=== PATIENT | male | born 1990 | race Caucasian/White ===

== ENCOUNTER 2018-03-15 00:34 | Emergency (ER) | payer MEDICAID ==
--- NOTE | 2018-03-15 00:56 | EDPHY ---
H & P Stated Complaint: abd pain Time Seen by Provider: 03/15/18 00:56 HPI/ROS: HPI CHIEF COMPLAINT: Epigastric burning pain up into his throat HISTORY OF PRESENT ILLNESS: Patient 27-year-old male, otherwise healthy denies having any significant medical history except for remote history of reflux, presents emergency room with epigastric burning pain that sometimes goes up into his chest and into his throat. He states at times he forces it back down. Denies any vomiting, denies chest pain or shortness of breath, denies fever, denies lower abdominal pain. The pain got worse after eating tonight. Main pain epigastric region burning sensation. Denies any back pain or lower abdominal pain. Denies fever. Denies urinary symptoms Past Medical History: Denies significant medical history Past Surgical History: Denies significant surgical history Social History: Smokes tobacco, smokes marijuana, occasional alcohol use. Denies other illicit drugs. Family History: Noncontributory ROS REVIEW OF SYSTEMS: A comprehensive 10 point review of systems is otherwise negative aside from elements mentioned in the history of present illness. Exam Constitutional appears well nontoxic no acute distress triage nursing summary reviewed, vital signs reviewed, awake/alert. Eyes normal conjunctivae and sclera, EOMI, PERRLA. HENT normal inspection, atraumatic, moist mucus membranes, no epistaxis, neck supple/ no meningismus, no raccoon eyes. Respiratory clear to auscultation bilaterally, normal breath sounds, no respiratory distress, no wheezing. Cardiovascular rate normal, regular rhythm, no murmur, no edema, distal pulses normal. Gastrointestinal very subtle mild tenderness epigastric, no rebound, no guarding, normal bowel sounds, no distension, no pulsatile mass. Genitourinary no CVA tenderness. Musculoskeletal no midline vertebral tenderness, full range of motion, no calf swelling, no tenderness of extremities, no meningismus, good pulses, neurovascularly intact. Skin pink, warm, & dry, no rash, skin atraumatic. Neurologic awake, alert and oriented x 3, AAOx3, moves all 4 extremities equally, motor intact, sensory intact, CN II-XII intact, normal cerebellar, normal vision, normal speech. Psychiatric normal mood/affect. Heme/Lymph/Immune no lymphadenopathy. Differential diagnosis includes but is not limited to and in no particular order : Gastritis, GERD, peptic ulcer disease Bowel obstruction, appendicitis, gallbladder disease, diverticulitis, colitis, enteritis, perforated viscus, esophagitis, urinary tract infection, pyelonephritis, kidney stones Medical Decision Making: Plan for this patient IV establishment with fluid bolus, GI cocktail and IV Protonix, check basic blood work, and re-evaluate. At this time is abdomen is soft nontender. I do not feel that he needs any significant imaging. Re-evaluation: 0228: Patient is sleeping. Resting comfortably I did reexamine his abdomen is soft nontender. Feels better after GI cocktail Protonix. Most likely has gastritis versus GERD. Recommend refraining from smoking, spicy fatty greasy foods. Recommend Zantac. Distally discussed return precautions with him he understands return emergency room if develops worsening abdominal pain fever vomiting. Source: Patient - Personal History Current Tetanus Diphtheria and Acellular Pertussis (TDAP): Unsure - Medical/Surgical History Hx Asthma: Yes Hx Chronic Respiratory Disease: No Hx Diabetes: No Hx Cardiac Disease: No Hx Renal Disease: No Hx Cirrhosis: No Hx Alcoholism: No Hx HIV/AIDS: No Hx Splenectomy or Spleen Trauma: No Other PMH: asthma - Social History Smoking Status: Current every day smoker Constitutional: Initial Vital Signs Temperature (C) 36.5 C 03/15/18 00:38 Heart Rate 86 03/15/18 00:38 Respiratory Rate 20 03/15/18 00:38 Blood Pressure 111/65 03/15/18 00:38 O2 Sat (%) 96 03/15/18 00:38 O2 Delivery Mode Room Air Allergies/Adverse Reactions: No Known Allergies Allergy (Unverified 03/15/18 00:37) Home Medications: Medication Instructions Recorded Ranitidine HCl [Zantac] 150 mg PO DAILY #30 tablet 03/15/18 Medical Decision Making - Data Points Laboratory Results: Laboratory Results 03/15/18 01:05 03/15/18 01:05 03/15/18 03/15/18 03/15/18 01:15 01:05 01:05 WBC 10.61 10^3/uL H 10^3/uL (3.80-9.50) RBC 4.76 10^6/uL 10^6/uL (4.40-6.38) Hgb 14.7 g/dL g/dL (13.7-17.5) Hct 41.6 % % (40.0-51.0) MCV 87.4 fL fL (81.5-99.8) MCH 30.9 pg pg (27.9-34.1) MCHC 35.3 g/dL g/dL (32.4-36.7) RDW 13.7 % % (11.5-15.2) Plt Count 228 10^3/uL 10^3/uL (150-400) MPV 9.4 fL fL (8.7-11.7) Neut % (Auto) 76.5 % H % (39.3-74.2) Lymph % (Auto) 15.0 % % (15.0-45.0) [place] % (Auto) 6.5 % % (4.5-13.0) Eos % (Auto) 1.5 % % (0.6-7.6) Baso % (Auto) 0.3 % % (0.3-1.7) Nucleat RBC Rel Count 0.0 % % (0.0-0.2) Absolute Neuts (auto) 8.12 10^3/uL H 10^3/uL (1.70-6.50) Absolute Lymphs (auto) 1.59 10^3/uL 10^3/uL (1.00-3.00) Absolute Monos (auto) 0.69 10^3/uL 10^3/uL (0.30-0.80) Absolute Eos (auto) 0.16 10^3/uL 10^3/uL (0.03-0.40) Absolute Basos (auto) 0.03 10^3/uL 10^3/uL (0.02-0.10) Absolute Nucleated RBC 0.00 10^3/uL 10^3/uL (0-0.01) Immature Gran % 0.2 % % (0.0-1.1) Immature Gran # 0.02 10^3/uL 10^3/uL (0.00-0.10) Sodium 141 mEq/L mEq/L (135-145) Potassium 4.1 mEq/L mEq/L (3.3-5.0) Chloride 104 mEq/L mEq/L (97-110) Carbon Dioxide 23 mEq/l mEq/l (22-31) Anion Gap 14 mEq/L mEq/L (8-16) BUN 15 mg/dL mg/dL (7-23) Creatinine 1.1 mg/dL mg/dL (0.7-1.3) Estimated GFR > 60 Glucose 86 mg/dL mg/dL (70-100) Calcium 9.3 mg/dL mg/dL (8.5-10.4) Total Bilirubin 1.5 mg/dL H mg/dL (0.1-1.4) Conjugated Bilirubin 0.4 mg/dL mg/dL (0.0-0.5) Unconjugated Bilirubin 1.1 mg/dL mg/dL (0.0-1.1) AST 16 IU/L L IU/L (17-59) ALT 33 IU/L IU/L (21-72) Alkaline Phosphatase 56 IU/L IU/L (38-126) Total Protein 6.9 g/dL g/dL (6.3-8.2) Albumin 4.3 g/dL g/dL (3.5-5.0) Lipase 85 IU/L IU/L (23-300) Urine Color YELLOW Urine Appearance CLEAR Urine pH 5.0 (5.0-7.5) Ur Specific [place] 1.016 (1.002-1.030) Urine Protein NEGATIVE (NEGATIVE) Urine Ketones NEGATIVE (NEGATIVE) Urine Blood NEGATIVE (NEGATIVE) Urine Nitrate NEGATIVE (NEGATIVE) Urine Bilirubin NEGATIVE (NEGATIVE) Urine Urobilinogen NEGATIVE EU EU (0.2-1.0) Ur Leukocyte Esterase NEGATIVE (NEGATIVE) Urine Glucose NEGATIVE (NEGATIVE) Urine Opiates Screen NEGATIVE (NEGATIVE) Urine Barbiturates NEGATIVE (NEGATIVE) Ur Phencyclidine Scrn NEGATIVE (NEGATIVE) Ur Amphetamine Screen NEGATIVE (NEGATIVE) U Benzodiazepines Scrn NEGATIVE (NEGATIVE) Urine Cocaine Screen NEGATIVE (NEGATIVE) U Marijuana (THC) Screen NON-NEGATIVE H (NEGATIVE) Medications Given: Pantoprazole Sodium (Protonix) 40 mg IVP Q6H [facility] Stop: 09/11/18 06:58 Last Admin: 03/15/18 01:13 Dose: 40 mg Discontinued Medications Al Hydroxide/Mg Hydroxide (Maalox Susp) 30 ml PO ONCE ONE Stop: 03/15/18 01:00 Last Admin: 03/15/18 01:07 Dose: 30 ml Hyoscyamine Sulfate (Levsin, Hyomax-Sl) 0.25 mg PO ONCE ONE Stop: 03/15/18 01:00 Last Admin: 03/15/18 01:07 Dose: 0.25 mg Sodium Chloride (Ns) 1,000 mls @ 0 mls/hr IV EDNOW ONE; Wide Open PRN Reason: Protocol Stop: 03/15/18 01:00 Last Admin: 03/15/18 01:07 Dose: 1,000 mls Lidocaine (Lidocaine 2% Viscous) 15 ml PO ONCE ONE Stop: 03/15/18 01:00 Last Admin: 03/15/18 01:07 Dose: 15 ml Departure - Departure Disposition: Home, Routine, Self-Care Clinical Impression: Gastritis Qualifiers: Gastritis type: unspecified gastritis Chronicity: acute Gastritis bleeding: without bleeding Qualified Code(s): K29.00 - Acute gastritis without bleeding Condition: Good Instructions: Gastritis (ED) Additional Instructions: 1. Stay away from eating spicy fatty greasy foods 2. Refrain from smoking cigarettes or marijuana or drinking alcohol 3. Ranitidine As prescribed. 4. Return emergency room if you have worsening abdominal pain fever vomiting. Referrals: NONE *PRIMARY CARE P,. [Primary Care Provider] - As per Instructions Prescriptions: Ranitidine HCl [Zantac] 150 mg PO DAILY #30 tablet
[2018-03-15] MEDS ORDERED: MAG HYDROX/AL HYDROX/SIMETH 30 ML UDCUP PO ONE (00:59)
[2018-03-15] MEDS ORDERED: HYOSCYAMINE SULFATE 0.125 MG TAB PO ONE (00:59)
[2018-03-15] MEDS ORDERED: LIDOCAINE 2% VISCOUS 15 ML UDCUP PO ONE (00:59)
[2018-03-15] MEDS ORDERED: NS 1,000 ML IV ONE (00:59)
[2018-03-15] MEDS ORDERED: PANTOPRAZOLE SODIUM 40 MG VIAL ONE (01:10)
[2018-03-15 01:16] LABS: PLATELET COUNT 228 10^3/uL (150-400)
[2018-03-15 02:41] VITALS: BP 126/76
[2018-03-15] MEDS ORDERED: PANTOPRAZOLE SODIUM 40 MG VIAL IVP SCH (06:59)
== END 2018-03-15 02:40 | disposition home or self-care (01) ==
DX: K29.00 Acute gastritis without bleeding (principal); E86.9 Volume depletion, unspecified; J45.909 Unspecified asthma, uncomplicated; F17.200 Nicotine dependence, unspecified, uncomplicated
CPT/HCPCS: 80305; 96374

== ENCOUNTER 2018-04-04 20:58 | Emergency (ER) | payer MEDICAID ==
--- NOTE | 2018-04-04 22:03 | EDPHY ---
H & P Time Seen by Provider: 04/04/18 21:55 HPI/ROS: CHIEF COMPLAINT: "Have athlete's foot" HISTORY OF PRESENT ILLNESS: 27-year-old male complaining of bilateral tinea pedis for the past 3 months. No pain. He has also seen the ER few days ago given prescription for albuterol and Zantac which he lost. He denies abdominal pain. Denies dyspnea. Denies chest pain. Denies nausea or vomiting but he would like refills of these. PRIMARY CARE PROVIDER: REVIEW OF SYSTEMS: A ten point review of systems was performed and is negative with the exception of the items mentioned in the HPI PAST MEDICAL & SURGICAL HISTORY: No pertinent medical or surgical history SOCIAL HISTORY: Daily tobacco, thinking about quitting PHYSICAL EXAM (Prior to examination, patient consented to physical exam, hands were washed and my usual and customary physical exam procedures followed) 1) GENERAL: Well-developed, well-nourished, alert and oriented. Appears to be in no acute distress. 2) HEAD: Normocephalic, atraumatic 3) HEENT: Pupils equal, round, reactive to light bilaterally. Sclera anicteric. 4) NECK: Full range of motion, no meningeal signs. 5) LUNGS: Clear auscultation bilaterally, no wheezes, no rhonchi, no retractions. 6) HEART: Regular rate and rhythm, no murmur, no heave, no gallop. 7) ABDOMEN: No guarding, no rebound, no focal tenderness, negative McBurney's, negative Doss's, negative Rovsing's, negative peritoneal sign, unable to elicit any abdominal pain on exam 8) MUSCULOSKELETAL: His bilateral feet in the web spaces erythema consistent with tinea pedis. No signs of super infection no signs of cellulitis. Moving all extremities, no focal areas of tenderness, no obvious trauma. No peripheral edema or discoloration. 9) BACK: No CVA tenderness, no midline vertebral tenderness, no fluctuance, no step-off, no obvious trauma, no visual or palpable abnormality. 10) SKIN: No rash, no petechiae. 11) Psychiatric: Patient is oriented X 3, there is no agitation. DIFFERENTIAL DIAGNOSIS: In no particular include but limited to cellulitis, tinea pedis, necrotizing fasciitis Smoking Status: Light smoker Constitutional: Initial Vital Signs Temperature (C) 36.6 C 04/04/18 21:04 Heart Rate 98 04/04/18 21:04 Respiratory Rate 16 04/04/18 21:04 Blood Pressure 144/82 H 04/04/18 21:04 O2 Sat (%) 97 04/04/18 21:04 O2 Delivery Mode Room Air Allergies/Adverse Reactions: No Known Allergies Allergy (Verified 04/04/18 21:02) Home Medications: Medication Instructions Recorded Albuterol [Proventil Inhaler HFA 1 - 2 puffs IH Q4PRN PRN #1 mdi 04/04/18 (*)] Nystatin [Mycostatin Cream (RX)] 1 kavita TOP BID #30 g 04/04/18 Ranitidine HCl [Zantac] 150 mg PO DAILY #15 tablet 04/04/18 MDM/Departure - [facility] ED Course/Re-evaluation: I saw this patient independently based on established practice protocols. Care of patient under supervision of primary Supervising physician Dr Mckeon . Patient has evidence of tinea pedis will be prescribed antifungal. He also requests refill of albuterol and Zantac which has been given to him. No complaints of chest pain, dyspnea, abdominal pain, nausea, vomiting. Lungs are clear bilaterally, abdomen is soft. - Depart Disposition: Home, Routine, Self-Care Clinical Impression: Medication refill Tinea pedis Qualifiers: Laterality: bilateral Qualified Code(s): B35.3 - Tinea pedis Condition: Good Instructions: Skin Yeast Infection (ED) Additional Instructions: Return to the ER if you develop redness, swelling, discharge, warmth to the wound, red streaks going up your leg, or any other symptoms that concern you. Prescriptions: Albuterol [Proventil Inhaler HFA (*)] 1 - 2 puffs IH Q4PRN PRN #1 mdi PRN Reason: Cough, Moderate Nystatin [Mycostatin Cream (RX)] 1 kavita TOP BID #30 g Ranitidine HCl [Zantac] 150 mg PO DAILY #15 tablet Referrals: [facility],. [Clinic] - 2-3 days, call for appt.
[2018-04-04 22:10] VITALS: BP 138/72
== END 2018-04-04 22:10 | disposition home or self-care (01) ==
DX: B35.3 Tinea pedis (principal); F17.200 Nicotine dependence, unspecified, uncomplicated; Z76.0 Encounter for issue of repeat prescription

== ENCOUNTER 2018-04-05 00:30 | Emergency (ER) | payer MEDICAID, OTHER ==
[2018-04-05] MEDS ORDERED: OLANZapine DISINTEGR 5 MG TAB PO ONE (00:48)
[2018-04-05] MEDS ORDERED: LORazepam 1 MG TAB PO ONE (00:48)
--- NOTE | 2018-04-05 00:52 | EDPHY ---
H & P Stated Complaint: HI, AH - Personal History Current Tetanus Diphtheria and Acellular Pertussis (TDAP): Unsure - Medical/Surgical History Hx Asthma: Yes Hx Chronic Respiratory Disease: No Hx Diabetes: No Hx Cardiac Disease: No Hx Renal Disease: No Hx Cirrhosis: No Hx Alcoholism: Yes Hx HIV/AIDS: No Hx Splenectomy or Spleen Trauma: No Other PMH: asthma, ATHLETES FOOT - Social History Smoking Status: Light smoker Time Seen by Provider: 04/05/18 00:47 HPI/ROS: CHIEF COMPLAINT: "People are talking about me and I want to hurt them" HISTORY OF PRESENT ILLNESS: 27-year-old male with a self-described medical and mental health history significant for schizoaffective disorder, schizophrenia, bipolar disorder, was seen the ER approximately 2 hr ago by myself for complaints of tinea pedis, states that he then went to a bar and felt that multiple people were making fun of him, started to experience audio hallucinations and threatened to come back and kill multiple people with a "[id number] can [employer] network architect." He denies suicidal ideation. He denies threat toward specific individual. Denies self-injurious behavior. REVIEW OF SYSTEMS: A ten point review of systems was performed and is negative with the exception of the items mentioned in the HPI PAST MEDICAL & SURGICAL HISTORY: Self-described history of schizophrenia, schizoaffective disorder, bipolar disorder SOCIAL HISTORY: Positive for alcohol use PHYSICAL EXAM (Prior to examination, patient consented to physical exam, hands were washed and my usual and customary physical exam procedures followed) 1) GENERAL: Well-developed, well-nourished, alert and oriented. Agitated, rapid speech pattern, flight of ideas, 2) HEAD: Normocephalic, atraumatic 3) HEENT: Pupils equal, round, reactive to light bilaterally. Sclera anicteric. 4) NECK: Full range of motion, no meningeal signs. 5) LUNGS: Clear auscultation bilaterally, no wheezes, no rhonchi, no retractions. 6) HEART: Regular rate and rhythm, no murmur, no heave, no gallop. 7) ABDOMEN: No guarding, no rebound, no focal tenderness, negative McBurney's, negative Doss's, negative Rovsing's, negative peritoneal sign, 8) MUSCULOSKELETAL: Moving all extremities, no focal areas of tenderness, no obvious trauma. No peripheral edema or discoloration. 9) BACK: No CVA tenderness, no midline vertebral tenderness, no fluctuance, no step-off, no obvious trauma, no visual or palpable abnormality. 10) SKIN: No rash, no petechiae. 11) Psychiatric: Patient is oriented X 3, agitated, flight of ideas, rapid tangential speech pattern. DIFFERENTIAL DIAGNOSIS: In no particular order include but limited to royer, psychosis, homicidal ideation, suicidal ideation (Kerri Frazier Lady) Constitutional: Initial Vital Signs Temperature (C) 36.7 C 04/05/18 00:34 Heart Rate 95 04/05/18 00:34 Respiratory Rate 16 04/05/18 00:34 Blood Pressure 150/90 H 04/05/18 00:34 O2 Sat (%) 95 04/05/18 00:34 O2 Delivery Mode Room Air Allergies/Adverse Reactions: No Known Allergies Allergy (Verified 04/04/18 21:02) Home Medications: Medication Instructions Recorded Albuterol [Proventil Inhaler HFA 1 - 2 puffs IH Q4PRN PRN #1 mdi 04/04/18 (*)] Nystatin [Mycostatin Cream (RX)] 1 kavita TOP BID #30 g 04/04/18 Ranitidine HCl [Zantac] 150 mg PO DAILY #15 tablet 04/04/18 Medical Decision Making ED Course/Re-evaluation: 12:50 a.m.: Case discussed with secondary supervising physician Dr. Patsy Aguilar in the ER. Patient is being placed on M1 hold for homicidal ideation toward no specific individual, as well as being more than likely acutely psychotic and royer. Will administer oral Ativan and Zyprexa. He agrees to mental health evaluation. 2 am: Care turned over to Dr Aguilar. Mental health evaluation pending. (Kerri Frazier Lady) PHYSICIAN DOCUMENTATION: The patient was evaluated and managed by the Physician Call Center Operator. My co- signature indicates that I have reviewed this chart and I agree with the findings and plan of care as documented. I am the secondary supervising physician. 5:30 a.m.- Patient has been stable throughout my shift, sleeping for most of it. Is awaiting mental health evaluation at this time. I anticipate at 7:00 a.m. The case will be signed out to the oncoming provider Dr. Rice. (Patsy Aguilar) Other Provider: I assumed care of this patient from Dr. Aguilar at 7:00 a.m.. At that time he was undergoing mental health evaluation. The [facility] lidder spoke with me about him. She has also spoken with the psychiatrist on duty. They both feel that this patient is neither a danger to himself nor to others. He is not currently psychotic. He is not felt to be experiencing visual or auditory hallucinations. The psychiatrist will be lifting the hold. This patient is established at [facility] and can follow up there. He is hoping to return to [place]. The diagnosis that he was given earlier at [facility] is adjustment disorder. (Portia Rice) - Data Points Laboratory Results: Laboratory Results 04/05/18 01:10 04/05/18 01:10 04/05/18 04/05/18 04/05/18 01:10 01:10 00:45 WBC 6.47 10^3/uL 10^3/uL (3.80-9.50) RBC 4.87 10^6/uL 10^6/uL (4.40-6.38) Hgb 15.1 g/dL g/dL (13.7-17.5) Hct 42.1 % % (40.0-51.0) MCV 86.4 fL fL (81.5-99.8) MCH 31.0 pg pg (27.9-34.1) MCHC 35.9 g/dL g/dL (32.4-36.7) RDW 13.2 % % (11.5-15.2) Plt Count 179 10^3/uL 10^3/uL (150-400) MPV 9.4 fL fL (8.7-11.7) Neut % (Auto) 61.4 % % (39.3-74.2) Lymph % (Auto) 26.3 % % (15.0-45.0) [place] % (Auto) 8.2 % % (4.5-13.0) Eos % (Auto) 3.6 % % (0.6-7.6) Baso % (Auto) 0.5 % % (0.3-1.7) Nucleat RBC Rel Count 0.0 % % (0.0-0.2) Absolute Neuts (auto) 3.98 10^3/uL 10^3/uL (1.70-6.50) Absolute Lymphs (auto) 1.70 10^3/uL 10^3/uL (1.00-3.00) Absolute Monos (auto) 0.53 10^3/uL 10^3/uL (0.30-0.80) Absolute Eos (auto) 0.23 10^3/uL 10^3/uL (0.03-0.40) Absolute Basos (auto) 0.03 10^3/uL 10^3/uL (0.02-0.10) Absolute Nucleated RBC 0.00 10^3/uL 10^3/uL (0-0.01) Immature Gran % 0.0 % % (0.0-1.1) Immature Gran # 0.00 10^3/uL 10^3/uL (0.00-0.10) Sodium 137 mEq/L mEq/L (135-145) Potassium 3.6 mEq/L mEq/L (3.3-5.0) Chloride 106 mEq/L mEq/L (97-110) Carbon Dioxide 24 mEq/l mEq/l (22-31) Anion Gap 7 mEq/L L mEq/L (8-16) BUN 17 mg/dL mg/dL (7-23) Creatinine 0.6 mg/dL L mg/dL (0.7-1.3) Estimated GFR > 60 Glucose 83 mg/dL mg/dL (70-100) Calcium 9.6 mg/dL mg/dL (8.5-10.4) Urine Opiates Screen NEGATIVE (NEGATIVE) Urine Barbiturates NEGATIVE (NEGATIVE) Ur Phencyclidine Scrn NEGATIVE (NEGATIVE) Ur Amphetamine Screen NEGATIVE (NEGATIVE) U Benzodiazepines Scrn NEGATIVE (NEGATIVE) Urine Cocaine Screen NEGATIVE (NEGATIVE) U Marijuana (THC) Screen NON-NEGATIVE H (NEGATIVE) Ethyl Alcohol < 10 mg/dL mg/dL (0-10) Medications Given: Discontinued Medications Lorazepam (Ativan) 1 mg PO EDNOW ONE Stop: 04/05/18 00:49 Last Admin: 04/05/18 01:07 Dose: 1 mg Olanzapine (Zyprexa Zydis) 5 mg PO EDNOW ONE Stop: 04/05/18 00:49 Last Admin: 04/05/18 01:07 Dose: 5 mg Departure - Departure Disposition: Home, Routine, Self-Care Clinical Impression: Adjustment disorder Qualifiers: Adjustment disorder type: unspecified type Qualified Code(s): F43.20 - Adjustment disorder, unspecified Condition: Good Instructions: Mood Disorders (ED) Referrals: [facility],. [Clinic] - As per Instructions [facility],. [Clinic] - As per Instructions
[2018-04-05 01:19] LABS: PLATELET COUNT 179 10^3/uL (150-400)
[2018-04-05 08:04] VITALS: BP 138/90
== END 2018-04-05 08:27 | disposition home or self-care (01) ==
DX: F43.20 Adjustment disorder, unspecified (principal); J45.909 Unspecified asthma, uncomplicated; F17.200 Nicotine dependence, unspecified, uncomplicated
CPT/HCPCS: 80305; G0480

== ENCOUNTER 2018-04-28 22:07 | Inpatient (IN) | payer MEDICAID, OTHER ==
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
[2018-04-28] MEDS ORDERED: OLANZapine DISINTEGR 5 MG TAB PO ONE (22:42)
[2018-04-28 23:09] LABS: PLATELET COUNT 232 10^3/uL (150-400)
--- NOTE | 2018-04-28 23:31 | ASMTLCPROG ---
Notes Note: Notes: Spoke with Ahmet from [facility] for collateral. Pt see's Ritika Rivera as his thx. He is part of the [facility] Adult Team through [facility]. Pt was kicked out of the [facility] possibly in March but details are unknown. Pt has a hx of meth/THC and ETOH use. Last meth use was 3 months ago. Ahmet states, per [facility] records, pt has a hx of Alcohol Use Disorder and Adjustment Disorder. Pt was in W/D Management on April 04. No future appointments set up. Pt no-showed his comprehensive intake appt on April 03. On March 27, pt met with a clinician for an intervention. Pt stated that his FOC committed suicide. Pt was presenting as paranoid, hyper, irritable, rigid and pt admitted at that time to a hx of meth/etoh use. Pt refused a UTOX appt. Pt was supposed to go to [place] to complete some legal homes, then go back to [facility]. Date Signed: 04/28/2018 11:30 PM Electronically Signed By:Carrie Escalante
--- NOTE | 2018-04-29 13:50 | ASMTTCLDSP ---
TLC Discharge Disposition Disposition: Answers: Admit Disposition Notes: Notes: In consultation with [facility] ED physician, Donald Cullen MD and on-call psychiatrist, Jorgito Pratt MD, both concurred that pt appears to meet 27-65 criteria requiring psychiatric hospitalization as pt appears to be at risk of harm to self/others/gravely disabled due to a mental illness condition. Pt was given the 3N prohibited belongings list while in the ED. Was patient given the Answers: Yes Inpatient Behavioral Health Prohibited Belongings List while in the ED? For inpatient BIPOLAR I DISORDER, WITH PSYCHOTIC FEATURES 296.44 admission, the following (F31.5 psychiatrist agreed to accept patient for admission to Behavioral Health ([facility]): Psychiatrist vacating M1 R/O Substance/Medication Induced Psychotic Disorder Hold: 292.9 F15.259 Type of Hold: Answers: M1/72-hour Hold Hold initiated by: Answers: ED Physician Date Signed: 04/29/2018 01:50 PM Electronically Signed By:Tish Flanagan
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
--- NOTE | 2018-04-29 14:13 | ASMTLCPROG ---
Notes Note: Notes: TLC evaluation completed. Pt was accepted on [facility]. Pt was read rights and signed belongings list. Pt refused to complete BDI and BSS prior to admission. Date Signed: 04/29/2018 02:12 PM Electronically Signed By:Tish Flanagan
[2018-04-29] MEDS ORDERED: MAGNESIUM HYDROXIDE 30 ML UDCUP PO PRN (15:35)
[2018-04-29] MEDS ORDERED: MAG HYDROX/AL HYDROX/SIMETH 30 ML UDCUP PO PRN (15:35)
[2018-04-29] MEDS ORDERED: NICOTINE POLACRILEX 2 MG GUM B PRN (15:35)
[2018-04-29] MEDS ORDERED: ACETAMINOPHEN 325 MG TAB PO PRN (15:35)
[2018-04-29] MEDS ORDERED: OLANZapine DISINTEGR 10 MG TAB PO PRN (15:35)
[2018-04-29] MEDS ORDERED: OLANZapine DISINTEGR 10 MG TAB PO SCH (21:00)
--- NOTE | 2018-04-30 08:40 | ASMTBHMTP ---
Master Treatment Plan Master Treatment Plan Answers: Mood Instability with for: Psychosis Date: 04/29/2018 Diagnosis on Admission: BIPOLAR I DISORDER, WITH PSYCHOTIC FEATURES 296.44 (F31.5) Expected length of stay: 3-5 days Reason for admission: Notes: Patient is a 27 yoa male who self-presented to the ED with complaints or worsening auditory hallucinations and critical negative thoughts of self. Client suggests, "he feels people are watching him and being critical of him." Pt was seen in the ED with similar complaints on 04/05/18.* Client U-Tox tested positive for Methamphetamine and Marijuana. Client is an active client of [facility]. Patient's stated presenting problems: Notes: "because I am depressed." Patient's goals for treatment: Notes: "nothing I can think of right now." Patient's strengths: Notes: "nothing I can think of right now." Identify supports outside of hospital: Notes: "nothing I can think of right now." Discharge criteria: Notes: [place] will demonstrate more stable mood by discharge Initial disposition plan/considerations: Notes: "don't know" Master Treatment Plan Required Signatures Psychiatrist signature: Answers: Psychiatrist: RN on-shift signature: Answers: RN: Patient signature: Answers: Patient: Date Signed: 04/30/2018 08:40 AM Electronically Signed By:Noman Medina
[2018-04-30] MEDS ORDERED: OLANZapine DISINTEGR 10 MG TAB PO ONE (08:46)
[2018-04-30] MEDS ORDERED: OLANZapine 10 MG/2 ML VIAL IM ONE (08:46)
[2018-04-30] MEDS ORDERED: OLANZapine 10 MG/2 ML VIAL ONE (08:54)
[2018-04-30] MEDS ORDERED: LORazepam 2 MG/ML INJ IM ONE (09:29)
[2018-04-30] MEDS ORDERED: LORazepam 1 MG TAB PO ONE ×2 (09:29→12:42)
[2018-04-30] MEDS ORDERED: LORazepam 1 MG TAB ONE ×2 (09:33→12:53)
[2018-04-30 09:43] VITALS: BP 202/110
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
--- NOTE | 2018-04-30 10:55 | PDMN ---
Medical Necessity Medical necessity: Pt meets IP criteria per & [facility] B-[id number]; est los >2 mn for eval/tx of unspecified psychosis; pt on M1 hold & is gravely disabled; hx bipolar disorder, schizophrenia, substance abuse & homelessness; per H&P & order 04/29/18
[2018-04-30] MEDS ORDERED: HALOPERIDOL 5 MG TAB PO ONE (12:48)
[2018-04-30] MEDS ORDERED: OLANZapine 10 MG/2 ML VIAL IM PRN (13:37)
--- NOTE | 2018-04-30 14:22 | PDHOSCONS ---
History and Physical - Chief Complaint Acute psychosis - History of Present Illness Primary care provider: None Primary mental health provider: [facility] HPI: 27-year-old male presenting with acute psychosis characterized as a constellation of negative self feelings, describing himself as "a piece of shit " and indicating that his thought process is "spinning out of control" with associated rapid cycling of thoughts, inability to concentrate, visible paranoia , and expression that he was experiencing auditory hallucinations suggesting that he harm himself. Patient reportedly had exacerbation of his thoughts of low self-esteem particularly in regards to having not seen his child in reportedly 4 years. The onset of the symptoms were reportedly on the day prior to presentation after the patient consumed alcohol and methamphetamine. The duration was reportedly persistent thereafter, and the patient's symptoms did seem to be somewhat alleviated by Zyprexa received in the emergency department. He was placed on an M1 hold. History Information - Allergies/Home Medication List Allergies/Adverse Reactions: No Known Allergies Allergy (Verified 04/04/18 21:02) I have personally reviewed and updated: family history, medical history, social history, surgical history - Past Medical History Additional medical history: Reportedly adjustment disorder as designated by [facility], although the patient claimed that he had schizoaffective disorder. Tinea pedis. Asthma - Surgical History Reports: no pertinent surgical hx - Family History Additional family history: Patient refuses to provide, becomes physically threatening and hostile - Social History Smoking Status: Light smoker Alcohol Use: Other (Consumed on day prior, unclear use) Drug Use: Other (Methamphetamine) Additional social history: Homeless Review of Systems Review of Systems: ROS: 10pt was reviewed & negative except for what was stated in HPI & below Physical Exam Physical Exam: Patient refuses to allow the remainder of the physical exam, becomes physically threatening and hostile, and the exam is consequently unobtainable at this time Temp Pulse Resp BP Pulse Ox 37.1 C 112 H 22 H 202/110 H 96 04/29/18 15:34 04/30/18 09:32 04/30/18 09:32 04/30/18 09:32 04/30/18 09:32 Constitutional: not in pain, unkempt, other (Thin appearing), No no apparent distress (Significant distress), No uncomfortable Skin: other (Numerous tattoos noted) Psychiatric: agitated (Severely), other (Verbally and physically threatening with rapid, sudden movements; demanding; angry; denies auditory hallucinations) Lab Data & Imaging Review 04/28/18 23:02 04/28/18 23: WBC 6.31 10^3/uL (3.80-9.50) 04/28/18 23: RBC 4.64 10^6/uL (4.40-6.38) 04/28/18 23: Hgb 14.5 g/dL (13.7-17.5) 04/28/18 23: Hct 41.6 % (40.0-51.0) 04/28/18 23: MCV 89.7 fL (81.5-99.8) 04/28/18 23: MCH 31.3 pg (27.9-34.1) 04/28/18 23: MCHC 34.9 g/dL (32.4-36.7) 04/28/18 23: RDW 13.0 % (11.5-15.2) 04/28/18: Plt Count 232 10^3/uL (150-400) 04/28/18 23: MPV 9.8 fL (8.7-11.7) 04/28/18 23: Neut % (Auto) 48.5 % (39.3-74.2) 04/28/18 23: Lymph % (Auto) 36.1 % (15.0-45.0) 04/28/18 23: Beaver % (Auto) 9.5 % (4.5-13.0) 04/28/18 23: Eos % (Auto) 5.1 % (0.6-7.6) 04/28/18 23: Baso % (Auto) 0.6 % (0.3-1.7) 04/28/18: Nucleat RBC Rel Count 0.0 % (0.0-0.2) 04/28/18 23: Absolute Neuts (auto) 3.06 10^3/uL (1.70-6.50) 04/28/18 23: Absolute Lymphs (auto) 2.28 10^3/uL (1.00-3.00) 04/28/18 23:02 Absolute Monos (auto) 0.60 10^3/uL (0.30-0.80) 04/28/18 23:02 Absolute Eos (auto) 0.32 10^3/uL (0.03-0.40) 04/28/18 23:02 Absolute Basos (auto) 0.04 10^3/uL (0.02-0.10) 04/28/18 23:02 Absolute Nucleated RBC 0.00 10^3/uL (0-0.01) 04/28/18 23:02 Immature Gran % 0.2 % (0.0-1.1) 04/28/18 23:02 Immature Gran # 0.01 10^3/uL (0.00-0.10) 04/28/18 23:02 Sodium 135 mEq/L (135-145) 04/28/18 23:02 Potassium 4.0 mEq/L (3.3-5.0) 04/28/18 23:02 Chloride 105 mEq/L (97-110) 04/28/18 23:02 Carbon Dioxide 23 mEq/l (22-31) 04/28/18 23:02 Anion Gap 7 mEq/L (8-16) L 04/28/18 23:02 BUN 14 mg/dL (7-23) 04/28/18 23:02 Creatinine 0.8 mg/dL (0.7-1.3) 04/28/18 23:02 Estimated GFR > 60 04/28/18 23:02 Glucose 74 mg/dL (70-100) 04/28/18 23:02 Hemoglobin A1c 4.8 % (4.0-6.0) 04/29/18 15:36 Estim Average Glucose 91 mg/dL (68-126) 04/29/18 15:36 Calcium 9.2 mg/dL (8.5-10.4) 04/28/18 23:02 Total Bilirubin 0.9 mg/dL (0.1-1.4) 04/29/18 15:36 Conjugated Bilirubin 0.2 mg/dL (0.0-0.5) 04/29/18 15:36 Unconjugated Bilirubin 0.7 mg/dL (0.0-1.1) 04/29/18 15:36 AST 21 IU/L (17-59) 04/29/18 15:36 ALT 29 IU/L (21-72) 04/29/18 15:36 Alkaline Phosphatase 42 IU/L (38-126) 04/29/18 15:36 Total Protein 6.2 g/dL (6.3-8.2) L 04/29/18 15:36 Albumin 4.0 g/dL (3.5-5.0) 04/29/18 15:36 Triglycerides 79 mg/dL (40-150) 04/29/18 15:36 Cholesterol 102 mg/dL (140-200) L 04/29/18 15:36 Cholesterol Risk Factr 0.4 (0.2-1.0) 04/29/18 15:36 LDL Cholesterol, Calc 38 mg/dL (60-100) L 04/29/18 15:36 LDL Risk Factor 0.4 (0.2-1.0) 04/29/18 15:36 VLDL Cholesterol 16 mg/dL (8-25) 04/29/18 15:36 Non-HDL Cholesterol 54 mg/dL (90-129) L 04/29/18 15:36 HDL Cholesterol 48 mg/dL (40-70) 04/29/18 15:36 LDL/HDL Ratio 0.80 RATIO (1.00-3.64) L 04/29/18 15:36 Cholesterol/HDL Ratio 2.13 RATIO (1.00-4.97) 04/29/18 15:36 Urine Opiates Screen NEGATIVE ng/mL (NEGATIVE) 04/28/18 22:55 Urine Barbiturates NEGATIVE ng/mL (NEGATIVE) 04/28/18 22:55 Ur Phencyclidine Scrn NEGATIVE ng/mL (NEGATIVE) 04/28/18 22:55 Ur Amphetamines Screen 2082 ng/mL (NEGATIVE) 04/28/18 22:55 U Benzodiazepines Scrn NEGATIVE ng/mL (NEGATIVE) 04/28/18 22:55 Urine Cocaine Screen NEGATIVE ng/mL (NEGATIVE) 04/28/18 22:55 U Marijuana (THC) Screen 758 ng/mL (NEGATIVE) 04/28/18 22:55 Ethyl Alcohol < 10 mg/dL (0-10) 04/28/18 23:02 Assessment & Plan Assessment: 27-year-old male presenting with acute psychosis Plan: 1. Psychosis. Acute, evidenced by rapid thought process, paranoia, reported auditory hallucinations, unpredictable physical and verbal aggression -reviewed outside records including 04/28/18 emergency department report by Dr. Giorgi Goldman, he reports the patient was placed on M1 hold for the aforementioned behaviors, administered Zyprexa x1 -patient was recently seen in the emergency department on 04/05/2018 but was not deemed to be gravely disabled at that time -tox screen positive for methamphetamine, potentially a drug-induced psychosis with an underlying mental health disorder -the patient has reportedly been off of medications since August of 2017, but it his exact diagnosis remains somewhat unclear, as he has a diagnosis of adjustment disorder at [facility] -defer further workup and treatment of this mental health issue to the primary mental health team -the patient became verbally and physically aggressive and threatening during our encounter and I was unable to provide him with a more thorough medical evaluation, but if the patient's situation changes or he expresses any physical or medical issues requiring evaluation, please contact the hospital Medicine service and we will follow up this consultation Hospital Medicine service will sign off at this time, please contact [phone] if further assistance is required.
--- NOTE | 2018-04-30 14:22 | ASMTBHDC ---
Notes Note: Notes: After speaking to provider, CC completed a referral to [facility]; where according to his report he is an open client. Provider is looking to discharge client tomorrow. CC requested appts time/date/location for follow up out-patient care, etc. Date Signed: 04/30/2018 02:21 PM Electronically Signed By:Noman Medina
[2018-04-30] MEDS: OLANZapine DISINTEGR 10 MG TAB PO SCH ×2 (20:47→22:32)
[2018-05-01] MEDS: OLANZapine DISINTEGR 10 MG TAB PO SCH (07:46)
[2018-05-01] MEDS ORDERED: LORazepam 1 MG TAB PO ONE (07:50)
[2018-05-01] MEDS ORDERED: LORazepam 1 MG TAB ONE (07:54)
--- NOTE | 2018-05-01 08:03 | SOAPPROG ---
SOAP Progress Note Assessment/Plan: Assessment: Substance-induced psychosis. Stimulant-use disorder. Patient used meth prior to his admission. Current psychosis. No improvement noted. (see subjective/ objective note). Patient is not safe to discharge at this time as patient continues to exhibit signs of psychosis, and express agitation, irritability. Patient requires continued inpatient care because of current psychosis, and requires inpatient level of care to stabilize in order to no longer gravely disabled due to mental illness. Patient could benefit from continued inpatient hospitalization for crisis stabilization, safety, and medication evaluation. Plan: Review psychotropic medication treatment informed consent and recommendations. After reviewing options, risks and benefits, patient agrees to continue current medications. Patient agrees to Ativan 2 mg now for agitation. Plan is to continue to observe patient for response and side effects from medications, and ongoing monitoring and evaluation. Next steps are for patient to meet with healthcare marketer to plan a safe discharge plan and establish outpatient services for ongoing treatment. Consider discharge next week if patient is in stable condition, safe, and has a safe discharge plan. PSYCHOTROPIC MEDICATION TREATMENT INFORMED CONSENT and RECOMMENDATIONS: Review nature of condition, diagnosis, and prognosis. Review nature and purpose of psychotropic medication treatment. Review type of psychotropic medications being ordered. Review risk and benefits of psychotropic medication treatment. Review probable length of time patient will need to take medications. Review risk and benefits of not undergoing psychotropic medication treatment. Review alternative treatments to psychotropic medications. Review psychotropic medications contraindications, drug-drug interactions, side effects, and importance of reporting any side effects to a psychiatric provider or nurse during inpatient hospitalization, and upon discharge to patients psychiatric outpatient provider, primary care provider, or other health direct care worker. Review importance of asking a nurse, psychiatric provider, or primary care provider any questions or problems concerning the psychotropic medications. Verify patient understands the information that has been provided, and understands, accepts, and agrees to psychotropic medications. Review patients safety plan and importance of patient to report to staff while hospitalized if patient is ever a danger to self/others, or unable to care for self, and upon discharge, the importance for patient to contact [facility] or [facility], or go to the nearest emergency room, if patient is ever a danger to self/others, or unable to care for self. Recommend that upon discharge patient establish medication management treatment with a psychiatric provider, establishes routine therapy appointments, and follow-up with primary care provider. Verify patient understands and agrees to these recommendations. 05/01/18 08:02 Subjective: Following up with patient for evaluation of psychosis, and safety. Patient refused to meet with this CHOIR DIRECTOR. Objective: Vital Signs Temp Pulse Resp BP Pulse Ox 37.1 C 112 H 22 H 202/110 H 96 04/29/18 15:34 04/30/18 09:32 04/30/18 09:32 04/30/18 09:32 04/30/18 09:32 NURSING REPORT: Consulted with nursing for update on patients progress in treatment. Nurses report patient is not a model patient; not engaged in treatment, is not attending groups, slept 12 hours, expresses the following psychiatric symptoms: disorganzied, agitated, aggressive; patient is eating meals, is taking medications as prescribed with no report of side effects, with no s/s of EPS/akathisia, denies SI/HI, A/V hallucinations, and delusions. The patient is an under-nourished male looking older than chronological age. Attire is inappropriate and dress is hospital garb, and is disheveled. Grooming status is inappropriate and disheveled. Ambulation is independent. Gait is normal and coordinated. Posture is normal. Eye contact is inappropriate, and avoided. Motor activity is appropriate; with no involuntary movements. Attitude is uncooperative and defensive. Patient appears disinterested, distractible, irritable, and does not relate well to this interviewer. Language production is spontaneous. R/RV normal. Articulation is clear. Patient reports mood as okay with expansive, inappropriate affect. Patients thought process is non-linear, illogical, disorganized. Associations are loose. Patient does not report suicidal/homicidal thoughts, ideas, or plans. Patient denies auditory, visual hallucinations. Patient denies delusions. Patient does not appear to be attending to internal stimuli. Patients attention and concentration are poor. Patient is oriented to person, place, time. Patients insight is poor. Patients judgment is poor. - Time Spent With Patient Time Spent With Patient: 15 minutes, met with patient individually. - Pending Discharge Pending Discharge Within 24 Hours: No Pending Discharge Within 48 Hours: No ICD10 Worksheet Patient Problems: Problems Problem Status Onset Bipolar disorder with severe royer Acute Methamphetamine use Acute Psychosis Acute
--- NOTE | 2018-05-01 08:11 | SOAPPROG ---
SOAP Progress Note Assessment/Plan: Assessment: Substance-induced psychosis. Stimulant-use disorder. Patient used meth prior to his admission. Current psychosis. No improvement noted. (see subjective/ objective note). Patient is not safe to discharge at this time as patient continues to exhibit signs of psychosis, and express agitation, irritability. Patient requires continued inpatient care because of current psychosis, and requires inpatient level of care to stabilize in order to no longer gravely disabled due to mental illness. Patient could benefit from continued inpatient hospitalization for crisis stabilization, safety, and medication evaluation. Plan: Review psychotropic medication treatment informed consent and recommendations. After reviewing options, risks and benefits, patient agrees to continue current medications. Patient agrees to Ativan 2 mg now for agitation. Plan is to continue to observe patient for response and side effects from medications, and ongoing monitoring and evaluation. Next steps are for patient to meet with career development specialist to plan a safe discharge plan and establish outpatient services for ongoing treatment. Consider discharge Friday if patient is in stable condition, safe, and has a safe discharge plan. PSYCHOTROPIC MEDICATION TREATMENT INFORMED CONSENT and RECOMMENDATIONS: Review nature of condition, diagnosis, and prognosis. Review nature and purpose of psychotropic medication treatment. Review type of psychotropic medications being ordered. Review risk and benefits of psychotropic medication treatment. Review probable length of time patient will need to take medications. Review risk and benefits of not undergoing psychotropic medication treatment. Review alternative treatments to psychotropic medications. Review psychotropic medications contraindications, drug-drug interactions, side effects, and importance of reporting any side effects to a psychiatric provider or nurse during inpatient hospitalization, and upon discharge to patients psychiatric outpatient provider, primary care provider, or other health patient care manager. Review importance of asking a nurse, psychiatric provider, or primary care provider any questions or problems concerning the psychotropic medications. Verify patient understands the information that has been provided, and understands, accepts, and agrees to psychotropic medications. Review patients safety plan and importance of patient to report to staff while hospitalized if patient is ever a danger to self/others, or unable to care for self, and upon discharge, the importance for patient to contact [facility] or [facility], or go to the nearest emergency room, if patient is ever a danger to self/others, or unable to care for self. Recommend that upon discharge patient establish medication management treatment with a psychiatric provider, establishes routine therapy appointments, and follow-up with primary care provider. Verify patient understands and agrees to these recommendations. 05/01/18 08:09 Subjective: Following up with patient for evaluation of psychosis, and safety. Patient refuses to meet for interview; patient requests voluntary hospitalization with plan to discharge tomorrow. Objective: Vital Signs Temp Pulse Resp BP Pulse Ox 37.1 C 112 H 22 H 202/110 H 96 04/29/18 15:34 04/30/18 09:32 04/30/18 09:32 04/30/18 09:32 04/30/18 09:32 NURSING REPORT: Consulted with nursing for update on patients progress in treatment. Nurses report patient is not a model patient; not engaged in treatment, is not attending groups, slept 12 hours, expresses the following psychiatric symptoms: disorganzied, agitated, aggressive; patient is eating meals, is taking medications as prescribed with no report of side effects, with no s/s of EPS/akathisia, denies SI/HI, A/V hallucinations, and delusions. The patient is an under-nourished male looking older than chronological age. Attire is inappropriate and dress is hospital garb, and is disheveled. Grooming status is inappropriate and disheveled. Ambulation is independent. Gait is normal and coordinated. Posture is normal. Eye contact is inappropriate, and avoided. Motor activity is appropriate; with no involuntary movements. Attitude is uncooperative and defensive. Patient appears disinterested, distractible, irritable, and does not relate well to this interviewer. Language production is spontaneous. R/RV normal. Articulation is clear. Patient reports mood as okay with expansive, inappropriate affect. Patients thought process is non-linear, illogical, disorganized. Associations are loose. Patient does not report suicidal/homicidal thoughts, ideas, or plans. Patient denies auditory, visual hallucinations. Patient denies delusions. Patient does not appear to be attending to internal stimuli. Patients attention and concentration are poor. Patient is oriented to person, place, time. Patients insight is poor. Patients judgment is poor. - Time Spent With Patient Time Spent With Patient: 15 minutes, met with patient individually. - Pending Discharge Pending Discharge Within 24 Hours: Yes Pending Discharge Within 48 Hours: No Pending Discharge Date: 05/02/18 Pending Discharge Time: 11:00 ICD10 Worksheet Patient Problems: Problems Problem Status Onset Bipolar disorder with severe royer Acute Methamphetamine use Acute Psychosis Acute
--- NOTE | 2018-05-01 11:09 | ASMTBHDC ---
Notes Note: Notes: CC was able to schedule client's follow up with [facility] for May 08 at 9am with Dion. treatment team meeting was completed, including nurse, provider, community health director, manager career, therapist and CC's. Client was not alert, semi-vocal, restricted affect, lax body language Client barely participated in treatment plan meeting and suggested he would like to leave today instead of continuing his care. Please note that client was detoxing from Meth and THC. Date Signed: 05/01/2018 11:08 AM Electronically Signed By:Noman Medina
--- NOTE | 2018-05-01 15:00 | BDS ---
[f rep st] BEHAVIORAL HEALTH DISCHARGE SUMMARY REASON FOR ADMISSION: From the ED note dated 04/28/2018, the patient presented to the emergency department with complaints of worsening auditory hallucinations. The patient reported feeling like he was spinning out of control and was in an acute manic episode. The patient reported he drank alcohol and smoked methamphetamine prior to presenting to the emergency department. The patient reported feeling paranoid, people are watching him, being critical of him. The patient reported that he had not slept in several days. The patient was seen in the emergency room on 04/05/2018 with similar complaints. The patient was admitted involuntarily on an M1 hold due to grave disability. The patient was admitted for safety crisis stabilization and medication management. ADMITTING DIAGNOSES: Stimulant-induced psychotic disorder; stimulant use disorder, amphetamine type; stimulant intoxication; cannabis use disorder, severe. ADMISSION PHYSICAL EXAM: The patient was seen on 04/30/2018, by the hospitalist for an H and P consult. The patient was medically cleared for inpatient psychiatric hospitalization, psychiatric medications and procedures. ADMISSION LABS: CBC from 04/28/2018, within normal limits. Chemistry from , within normal limits except for anion gap was low at 7. Liver function tests from 04/29/2018, within normal limits except for total protein, was low at 6.2. Fasting lipid panel from 04/29/2018, within normal limits except cholesterol low at 102, LDL cholesterol calculated low at 38, non-HDL cholesterol low at 54, LDL/HDL ratio low at 0.80. Toxicology from 04/28/2018 was positive for amphetamines, the result was 2082 ng/mL; positive for marijuana , result was 758 ng/mL. MAJOR PROCEDURES OR TESTS: None. HOSPITAL COURSE: The most prominent symptom and behavior while the patient was here was agitation due to recent methamphetamine use. Patient reported methamphetamine use one day prior to admission and reported having not slept for several days. Target symptom during hospitalization: Agitation related to methamphetamine use. Treatment modalities utilized were milieu and group therapy. The patient did not attend groups during hospitalization. Patient refused to attend and engage in groups. Zyprexa 10 mg p.o. q.h.s. was started to target agitation symptoms, was tolerated with no report of side effects and with good response. Ativan 2 mg p.o. q. day was started to target agitation symptoms, was tolerated with no report of side effects and with good response. The patient was agitated, aggressive and threatening toward staff yesterday; however, has improved considerably with no signs of psychiatric symptoms and no psychiatric symptoms expressed at discharge. Patient is no longer experiencing any psychiatric symptoms from recent methamphetamine use that were the onset of his psychiatric symptoms that led to this hospitalization. The patient reports that he just needed some sleep and feels well rested and no longer is agitated. The patient reports he has improved since admission. States to be in stable condition, feels safe to discharge, and he contracts for safety. Patient's response to treatment was good. There were no adverse or unexpected results of treatment. The treatment team consensus is the patient is in stable condition and is safe to discharge today. CONDITION AT DISCHARGE: Patient is in stable condition and is not a danger to self or others, and is no longer gravely disabled due to mental illness. Patient is no longer in need of inpatient level of care, and can be safely and effectively treated within the community. The patients level of risk at time of discharge is low. MSE: The patient is casually dressed and with good hygiene , and looks stated age. Patient is sitting, posture is upright, and position is relaxed. Patient appears awake, alert, and responds appropriately and reasonably during interview. Patient is engaged, relates well to interviewer, and emotional facial expression is appropriate to situation and changes appropriately with topic. Patient is cooperative, makes comfortable eye contact , and movements are voluntary, deliberate, coordinated, and smooth and even with no inappropriate movements. Patient makes laryngeal sounds effortlessly and shares conversation appropriately; pace of conversation is appropriate, and stream of talking is fluent; articulation is clear and understandable; word choice is effortless and appropriate for education level; completes sentences, occasionally pausing to think; rate and volume are appropriate for interview and setting. Patient reports mood as euthymic. Patients affect is stable with full variable range, congruent with mood, and appropriate to speech and circumstances. Patient has linear and logical thinking, with no loose associations, tangential thought, thought blocking, concrete thinking, or any other signs of formal thought disorder. Patient denies suicidal and homicidal ideation, and denies hallucinations and delusions. Patient appears to be a reliable historian with sound judgement and good insight into current condition. Patient has no apparent dysfunction in recent or remote memory noted , and no evidence of gross cognitive dysfunction noted at any point during the interview. DISCHARGE DIAGNOSES: Stimulant-induced psychotic disorder; stimulant use disorder, amphetamine type; stimulant intoxication; cannabis use disorder, severe. Suspected: Antisocial Personality Disorder. CURRENT MEDICATIONS: None. DISPOSITION: The patient left hospital independently and voluntarily. FOLLOWUP: digital asset coordinator reports the appropriate outpatient follow-up services have been established and outpatient appointments have been scheduled. The patient received written instructions with times and dates of outpatient follow-up appointments. The following follow-up recommendations were provided to the patient at discharge: Continue psychotropic medications as prescribed and attend appointments as scheduled. Report any side effects to a psychiatric outpatient provider, a primary care provider, or other health career manager. Address any questions or problems concerning the psychotropic medications with a psychiatric outpatient provider, a primary care provider, or other health career manager. Contact [facility] or [facility], or go to the nearest emergency room, if you are ever a danger to yourself/others, or unable to care for yourself. As soon as possible, establish a routine medication management treatment with a psychiatric provider, establish routine therapy appointments, and follow-up with a primary care provider. LEGAL COURSE: The patient was admitted on an M1 hold. The patient discharged today independently and voluntarily. ATTITUDE AT TIME OF DISCHARGE: The patient's attitude was positive at time of discharge, and patient reports looking forward to discharging today. The patient reports he feels safe to discharge, is not a danger to himself or others , is in stable condition, and contracts for safety. The patient describes internal protective factors as coping skills that he has learned from previous hospitalizations, and he plans to practice these coping skills after discharge. The patient reports external protective factors as his family. The patient describes future plans as moving back to [place]. LABS AND STUDIES: There were no pending labs or studies at time of discharge. ADVANCED DIRECTIVES: There were no advanced directives on file, and patient was a full code during hospitalization. The following recommendations were provided to the patient at time of discharge : Review safety plan and the importance to contact [facility] or [facility], or go to the nearest emergency room, if ever a danger to yourself/others, or unable to care for yourself. Recommend upon discharge to establish routine medication management treatment with a psychiatric provider, establish routine therapy appointments, and follow-up with a primary care provider. Verify patient understands, accepts, and agrees to the information that has been provided. /[id number]
== END 2018-05-01 12:35 | disposition home or self-care (01) | DRG 897 ==
LOC: BBEH 04-29 15:20
PROVIDERS: ADMIT Psychiatry & Neurology Psychiatry; ATTEND Psychiatry & Neurology Psychiatry
DX: F15.121 Other stimulant abuse with intoxication delirium (principal); F12.10 Cannabis abuse, uncomplicated; F60.2 Antisocial personality disorder; Z59.0 Homelessness
CPT/HCPCS: 80307; G0480